=== PATIENT | female | born 1995 | race Caucasian/White ===

== ENCOUNTER 2017-12-14 16:21 | Outpatient (CLI) | payer MEDICAID ==
[2017-12-14 18:51] LABS: RUPTURE FETAL MEMBRANES NEGATIVE (NEGATIVE)
== END 2017-12-14 19:15 | disposition home or self-care (01) ==
LOC: OBT 16:21 → L-D 16:22 → OBT 19:15
DX: O26.892 Other specified pregnancy related conditions, second trimester (principal); Z3A.20 20 weeks gestation of pregnancy; R10.9 Unspecified abdominal pain
CPT/HCPCS: 76815; 76817; 84112

== ENCOUNTER 2018-01-31 14:06 | Outpatient (CLI) | payer MEDICAID ==
[2018-01-31 14:54] LABS: ADD MAN DIFF? NO
[2018-01-31 14:56] LABS: BASOPHILS % 0.2 % (0.0-2.0); EOSINOPHILS % 0.3 % (0.0-7.0); HEMATOCRIT 33.1 % (37.0-47.0); HEMOGLOBIN 11.8 g/dl (12.0-16.0); LYMPHOCYTES # 1.7 10^3/ul (0.8-2.9); LYMPHOCYTES % 18.7 % (15.0-51.0); MEAN CORPUSCULAR HEMOGLOBIN 30.2 pg (29.0-33.0); MEAN CORPUSCULAR HGB CONC 35.6 g/dl (32.0-37.0); MEAN CORPUSCULAR VOLUME 84.7 fl (82.0-101.0); MEAN PLATELET VOLUME 9.6 fl (7.4-10.4); MONOCYTE # 0.6 10^3/ul (0.3-0.9); MONOCYTES % 6.9 % (0.0-11.0); NEUTROPHIL # 6.5 10^3/ul (1.6-7.5); NEUTROPHILS % 72.7 % (39.0-77.0); PLATELET COUNT 199 10^3/UL (140-415); RED BLOOD COUNT 3.91 10^6/ul (4.20-5.40); RED CELL DISTRIBUTION WIDTH 13.2 % (11.5-14.5)
[2018-01-31 14:56] LABS: WHITE BLOOD COUNT 8.9 10^3/ul (4.8-10.8)
[2018-01-31 15:28] LABS: ADD UMIC YES; UR ASCORBIC ACID NEGATIVE (NEGATIVE); UR BILIRUBIN (Dip) NEGATIVE (NEGATIVE); UR BLOOD (Dip) NEGATIVE (NEGATIVE); UR CLARITY SLIGHTLY CLOUDY (CLEAR); UR COLOR YELLOW (YELLOW); UR GLUCOSE (Dip) 1+ mg/dL (NEGATIVE); UR KETONES (Dip) NEGATIVE (NEGATIVE); UR LEUKOCYTE ESTERASE (Dip) 1+ Leu/ul (NEGATIVE); UR NITRITE (Dip) NEGATIVE (NEGATIVE); UR RBC 2 /HPF (0-5); UR SQUAMOUS EPITHELIAL CELL MODERATE /HPF (FEW); UR TOTAL PROTEIN (Dip) 1+ mg/dl (NEGATIVE); UR UROBILINOGEN (Dip) NEGATIVE (NEGATIVE); UR WBC 2 /HPF (0-5)
[2018-01-31 15:36] LABS: INR 0.93; PARTIAL THROMBOPLASTIN TIME 25.3 Sec (25.0-35.0); PROTIME 12.5 Sec (11.9-14.9)
== END 2018-01-31 16:25 | disposition home or self-care (01) ==
LOC: OBT 14:06 → L-D 14:07 → OBT 16:25
DX: O40.2XX0 Polyhydramnios, second trimester, not applicable or unspecified (principal); Z3A.27 27 weeks gestation of pregnancy
CPT/HCPCS: 76817; 76818; 81001; 85025; 85610; 85730

== ENCOUNTER 2018-03-17 15:31 | Inpatient (IN) | payer MEDICAID ==
[2018-03-17] MEDS ORDERED: GLUCOSE GEL 15 GRAM TUBE BUCCAL (17:00)
[2018-03-17] MEDS ORDERED: DEXTROSE 50% 50 ML SYRINGE IV ×2 (17:00)
[2018-03-17] MEDS ORDERED: GLUCOSE GEL 15 GRAM TUBE PO ×2 (17:00)
[2018-03-17] MEDS ORDERED: GLUCAGON 1 MG INJ IM (17:00)
[2018-03-17 17:01] LABS: ADD UMIC YES; UR ASCORBIC ACID NEGATIVE (NEGATIVE); UR BACTERIA FEW /HPF (NONE SEEN); UR BILIRUBIN (Dip) NEGATIVE (NEGATIVE); UR BLOOD (Dip) 2+ mg/dL (NEGATIVE); UR CLARITY CLEAR (CLEAR); UR COLOR YELLOW (YELLOW); UR GLUCOSE (Dip) NEGATIVE (NEGATIVE); UR KETONES (Dip) 2+ mg/dL (NEGATIVE); UR LEUKOCYTE ESTERASE (Dip) NEGATIVE Leu/ul (NEGATIVE); UR NITRITE (Dip) NEGATIVE (NEGATIVE); UR RBC 2 /HPF (0-5); UR SPECIFIC GRAVITY (Dip) 1.011 (1.003-1.030); UR SQUAMOUS EPITHELIAL CELL FEW /HPF (FEW); UR TOTAL PROTEIN (Dip) NEGATIVE (NEGATIVE); UR UROBILINOGEN (Dip) NEGATIVE (NEGATIVE); UR WBC 2 /HPF (0-5)
[2018-03-17] MEDS: LACTATED RINGER'S 1,000 ML IV (17:04)
[2018-03-17] MEDS: MAGNESIUM SULFATE 4 GM/100 ML 100 ML IV (17:05)
[2018-03-17] MEDS: BETAMET NA PHOS/AC(6 MG/ML) 5ML INJ IM (17:07)
[2018-03-17] MEDS: MAGNESIUM SULFATE 20 GM/500 ML 500 ML IV (17:29)
[2018-03-17 17:40] LABS: ADD MAN DIFF? NO
[2018-03-17 17:43] LABS: BASOPHILS % 0.2 % (0.0-2.0); EOSINOPHILS % 0.1 % (0.0-7.0); HEMATOCRIT 38.1 % (37.0-47.0); HEMOGLOBIN 13.2 g/dl (12.0-16.0); LYMPHOCYTES # 1.6 10^3/ul (0.8-2.9); LYMPHOCYTES % 13.8 % (15.0-51.0); MEAN CORPUSCULAR HEMOGLOBIN 29.5 pg (29.0-33.0); MEAN CORPUSCULAR HGB CONC 34.6 g/dl (32.0-37.0); MEAN PLATELET VOLUME 10.7 fl (7.4-10.4); MONOCYTE # 0.7 10^3/ul (0.3-0.9); MONOCYTES % 5.6 % (0.0-11.0); NEUTROPHIL # 9.2 10^3/ul (1.6-7.5); NEUTROPHILS % 79.4 % (39.0-77.0); PLATELET COUNT 207 10^3/UL (140-415); RED BLOOD COUNT 4.48 10^6/ul (4.20-5.40)
[2018-03-17 17:43] LABS: WHITE BLOOD COUNT 11.5 10^3/ul (4.8-10.8)
[2018-03-17 18:03] LABS: INR 0.89; PROTIME 12.1 Sec (11.9-14.9); PT RATIO 0.9
[2018-03-17 18:04] LABS: MAGNESIUM 1.9 mg/dl (1.7-2.5)
[2018-03-17 18:04] LABS: PARTIAL THROMBOPLASTIN TIME 27.5 Sec (25.0-35.0)
[2018-03-17 18:05] LABS: ALANINE AMINOTRANSFERASE 15 IU/L (13-69); ALBUMIN 3.8 g/dl (3.3-4.9); ALBUMIN/GLOBULIN RATIO 1.08; ALKALINE PHOSPHATASE 94 IU/L (42-121); ANION GAP 14 (8-16); ASPARTATE AMINO TRANSFERASE 18 IU/L (15-46); BILIRUBIN,INDIRECT 0.2 mg/dl (0-1.1); BILIRUBIN,TOTAL 0.2 mg/dl (0.2-1.3); BLOOD UREA NITROGEN 10 mg/dl (7-20); CALCIUM 9.1 mg/dl (8.4-10.2); CARBON DIOXIDE 20 mmol/L (21-31); CHLORIDE 108 mmol/L (97-110); CREATININE 0.53 mg/dl (0.44-1.00); GLUCOSE 81 mg/dl (70-220); POTASSIUM 4.3 mmol/L (3.5-5.1); SODIUM 138 mmol/L (135-144); TOTAL PROTEIN 7.3 g/dl (6.1-8.1)
[2018-03-17] MEDS: ACCU-CHEK XX ×3 (19:36→21:00)
[2018-03-18 01:13] LABS: MAGNESIUM 4.9 mg/dl (1.7-2.5)
[2018-03-18] MEDS: LACTATED RINGER'S 1,000 ML IV (03:40)
[2018-03-18] MEDS: MAGNESIUM SULFATE 20 GM/500 ML 500 ML IV (03:43)
[2018-03-18] MEDS: LEVOTHYROXINE 100 MCG TAB PO (08:06)
[2018-03-18] MEDS: INSULIN ASPART [NOVOLOG] 3 ML PEN SC (08:06)
[2018-03-18] MEDS: ACCU-CHEK XX ×5 (08:07→14:13)
[2018-03-18 08:37] LABS: MAGNESIUM 5.5 mg/dl (1.7-2.5)
[2018-03-18 15:03] LABS: RAPID PLASMA REAGIN NONREACTIVE (NR)
[2018-03-18] MEDS: BETAMET NA PHOS/AC(6 MG/ML) 5ML INJ IM (16:25)
== END 2018-03-18 17:33 | disposition home or self-care (01) | DRG 778 ==
LOC: OBT 15:31 → L-D 15:32 → OBT 15:57 → L-D 15:58
PROVIDERS: Obstetrics & Gynecology
DX: O60.03 Preterm labor without delivery, third trimester (principal); Z3A.33 33 weeks gestation of pregnancy; O24.419 Gestational diabetes mellitus in pregnancy, unspecified control; O99.282 Endocrine, nutritional and metabolic diseases complicating pregnancy, second trimester; E03.9 Hypothyroidism, unspecified
CPT/HCPCS: 76815; 76817; 80053; 81001; 82962; 83735; 85025; 85610; 85730; 86592

== ENCOUNTER 2018-03-19 20:07 | Inpatient (IN) | payer MEDICAID ==
[2018-03-19 22:45] LABS: ADD MAN DIFF? NO
[2018-03-19 22:48] LABS: ABNORMAL IP MESSAGE 1; BASOPHIL # 0.1 10^3/ul (0.0-0.1); BASOPHILS % 0.2 % (0.0-2.0); HEMATOCRIT 38.4 % (37.0-47.0); HEMOGLOBIN 13.2 g/dl (12.0-16.0); LYMPHOCYTES # 2.6 10^3/ul (0.8-2.9); LYMPHOCYTES % 11.9 % (15.0-51.0); MEAN CORPUSCULAR HEMOGLOBIN 29.7 pg (29.0-33.0); MEAN CORPUSCULAR HGB CONC 34.4 g/dl (32.0-37.0); MEAN CORPUSCULAR VOLUME 86.3 fl (82.0-101.0); MEAN PLATELET VOLUME 10.9 fl (7.4-10.4); MONOCYTE # 1.6 10^3/ul (0.3-0.9); MONOCYTES % 7.4 % (0.0-11.0); NEUTROPHIL # 16.9 10^3/ul (1.6-7.5); NEUTROPHILS % 78.7 % (39.0-77.0); PLATELET COUNT 243 10^3/UL (140-415); RED BLOOD COUNT 4.45 10^6/ul (4.20-5.40); RED CELL DISTRIBUTION WIDTH 13.1 % (11.5-14.5)
[2018-03-19 22:48] LABS: WHITE BLOOD COUNT 21.5 10^3/ul (4.8-10.8)
[2018-03-19 22:50] LABS: ADD UMIC YES; UR ASCORBIC ACID NEGATIVE (NEGATIVE); UR BACTERIA FEW /HPF (NONE SEEN); UR BILIRUBIN (Dip) NEGATIVE (NEGATIVE); UR BLOOD (Dip) 3+ mg/dL (NEGATIVE); UR CLARITY CLEAR (CLEAR); UR COLOR STRAW (YELLOW); UR GLUCOSE (Dip) 3+ mg/dL (NEGATIVE); UR KETONES (Dip) TRACE mg/dL (NEGATIVE); UR LEUKOCYTE ESTERASE (Dip) 2+ Leu/ul (NEGATIVE); UR NITRITE (Dip) NEGATIVE (NEGATIVE); UR RBC 4 /HPF (0-5); UR SPECIFIC GRAVITY (Dip) 1.006 (1.003-1.030); UR SQUAMOUS EPITHELIAL CELL FEW /HPF (FEW); UR TOTAL PROTEIN (Dip) NEGATIVE (NEGATIVE); UR UROBILINOGEN (Dip) NEGATIVE (NEGATIVE); UR WBC 3 /HPF (0-5)
[2018-03-19 22:52] LABS: POSITIVE DIFF @See below
[2018-03-19] MEDS: LACTATED RINGER'S 1,000 ML IV ×2 (22:55→22:57)
[2018-03-19] MEDS: AMPICILLIN 2 GM/NS (PMX) 100 ML IVPB (22:55)
[2018-03-19] MEDS ORDERED: MINERAL OIL LIGHT 10 ML VIAL TOP (23:00)
[2018-03-19] MEDS ORDERED: IBUPROFEN 600 MG TAB PO (23:00)
[2018-03-19] MEDS ORDERED: LIDOCAINE 1% (MPF) 30 ML INJ INJ (23:00)
[2018-03-19] MEDS ORDERED: METHYLERGONOVINE 0.2 MG INJ IM (23:00)
[2018-03-19] MEDS ORDERED: BUTORPHANOL 2 MG INJ IV (23:00)
[2018-03-19] MEDS ORDERED: MISOPROSTOL 200 MCG TAB PR (23:00)
[2018-03-19] MEDS ORDERED: OXYTOCIN 30 UNITS/LR 500 ML IV ×2 (23:00)
[2018-03-19] MEDS: LEVOTHYROXINE 100 MCG TAB PO (23:00)
[2018-03-19] MEDS ORDERED: CARBOPROST 250 MCG INJ IM (23:00)
[2018-03-19 23:02] LABS: ALANINE AMINOTRANSFERASE 13 IU/L (13-69); ALBUMIN/GLOBULIN RATIO 1.08; ALKALINE PHOSPHATASE 106 IU/L (42-121); ANION GAP 17 (8-16); ASPARTATE AMINO TRANSFERASE 17 IU/L (15-46); BILIRUBIN,INDIRECT 0.1 mg/dl (0-1.1); BILIRUBIN,TOTAL 0.1 mg/dl (0.2-1.3); BLOOD UREA NITROGEN 11 mg/dl (7-20); CALCIUM 9.8 mg/dl (8.4-10.2); CARBON DIOXIDE 19 mmol/L (21-31); CHLORIDE 107 mmol/L (97-110); CREATININE 0.61 mg/dl (0.44-1.00); GLUCOSE 143 mg/dl (70-220); SODIUM 139 mmol/L (135-144); TOTAL PROTEIN 7.7 g/dl (6.1-8.1); URIC ACID 2.9 mg/dl (3.1-7.9)
[2018-03-19 23:07] LABS: INR 0.86; PROTIME 11.8 Sec (11.9-14.9); PT RATIO 0.9
[2018-03-19] MEDS ORDERED: FENTAnyl 2MCG/ML-ROPIV 0.2% 100 ML (23:17)
[2018-03-19 23:18] LABS: BARBITURATES Negative (NEGATIVE); BENZODIAZEPINES Negative (NEGATIVE); COCAINE Negative (NEGATIVE); OPIATES Negative (NEGATIVE)
[2018-03-19 23:18] LABS: HEPATITIS B SURFACE ANTIGEN NEGATIVE (NEGATIVE)
[2018-03-19 23:20] LABS: AMPHETAMINE/METHAMPHETAMINE Negative (NEGATIVE)
[2018-03-19] MEDS ORDERED: NALOXONE (0.4 MG/ML) INJ IV (23:30)
[2018-03-19] MEDS ORDERED: FENTAnyl 2MCG/ML-ROPIV 0.2% 100 ML BAG EPI (23:30)
[2018-03-19 23:38] LABS: CANNABINOIDS Negative (NEGATIVE)
[2018-03-20] MEDS: AMPICILLIN 1 GM/NS (PMX) 50 ML IVPB (01:39)
[2018-03-20] MEDS: OXYTOCIN 30 UNITS/LR 500 ML IV ×3 (04:11→11:50)
[2018-03-20] MEDS ORDERED: OXYTOCIN 30 UNITS/LR 500 ML IV (04:30)
[2018-03-20] MEDS ORDERED: HYDROCODONE/APAP (5/325) TAB PO (04:30)
[2018-03-20] MEDS ORDERED: MISOPROSTOL 200 MCG TAB PR (04:30)
[2018-03-20] MEDS ORDERED: CARBOPROST 250 MCG INJ IM (04:30)
[2018-03-20] MEDS ORDERED: METHYLERGONOVINE 0.2 MG INJ IM (04:30)
[2018-03-20] MEDS ORDERED: LEVOTHYROXINE 100 MCG TAB PO (06:00)
[2018-03-20] MEDS: IBUPROFEN 600 MG TAB PO ×4 (07:00→23:35)
[2018-03-20] MEDS: LANOLIN 7 GM TUBE TOP (07:01)
[2018-03-20] MEDS: BENZOCAINE 20% 56 ML SPRAY TOP (07:01)
[2018-03-20] MEDS: LACTATED RINGER'S 1,000 ML IV* ×2 (07:29→12:20)
[2018-03-20] MEDS: LEVOTHYROXINE 100 MCG TAB PO (08:45)
[2018-03-20 14:56] LABS: RAPID PLASMA REAGIN NONREACTIVE (NR)
[2018-03-21] MEDS: IBUPROFEN 600 MG TAB PO ×3 (05:20→17:20)
[2018-03-21] MEDS: LEVOTHYROXINE 100 MCG TAB PO (05:20)
[2018-03-21 11:11] LABS: ADD MAN DIFF? NO
[2018-03-21 11:18] LABS: BASOPHIL # 0.1 10^3/ul (0.0-0.1); BASOPHILS % 0.5 % (0.0-2.0); EOSINOPHILS # 0.1 10^3/ul (0.0-0.5); EOSINOPHILS % 0.5 % (0.0-7.0); HEMATOCRIT 33.6 % (37.0-47.0); HEMOGLOBIN 11.4 g/dl (12.0-16.0); LYMPHOCYTES # 3.1 10^3/ul (0.8-2.9); MEAN CORPUSCULAR HEMOGLOBIN 29.4 pg (29.0-33.0); MEAN CORPUSCULAR HGB CONC 33.9 g/dl (32.0-37.0); MEAN CORPUSCULAR VOLUME 86.6 fl (82.0-101.0); MEAN PLATELET VOLUME 10.7 fl (7.4-10.4); MONOCYTE # 0.9 10^3/ul (0.3-0.9); MONOCYTES % 6.7 % (0.0-11.0); NEUTROPHIL # 8.5 10^3/ul (1.6-7.5); NEUTROPHILS % 65.6 % (39.0-77.0); PLATELET COUNT 205 10^3/UL (140-415); RED BLOOD COUNT 3.88 10^6/ul (4.20-5.40); RED CELL DISTRIBUTION WIDTH 13.3 % (11.5-14.5)
[2018-03-21 11:18] LABS: WHITE BLOOD COUNT 12.9 10^3/ul (4.8-10.8)
[2018-03-21] MEDS ORDERED: ACCU-CHEK XX (20:05)
[2018-03-22] MEDS: IBUPROFEN 600 MG TAB PO ×2 (00:02→05:14)
[2018-03-22] MEDS: LEVOTHYROXINE 100 MCG TAB PO (05:14)
[2018-03-22] MEDS: DIPHTH/TET/ACEL PERTUSS (ADULT) 0.5 ML VIAL IM* (09:20)
== END 2018-03-22 12:28 | disposition home or self-care (01) | DRG 775 ==
LOC: OBT 20:07 → PP1 03-20 05:39 → L-D 20:10 → OBT 20:41 → L-D 20:41
PROC: 10E0XZZ Delivery of Products of Conception, External Approach (ICD-10-PCS; principal; 2018-03-20)
PROC: 0KQM0ZZ Repair Perineum Muscle, Open Approach (ICD-10-PCS; 2018-03-20)
DX: O60.14X0 Preterm labor third trimester with preterm delivery third trimester, not applicable or unspecified (principal); O70.1 Second degree perineal laceration during delivery; O99.284 Endocrine, nutritional and metabolic diseases complicating childbirth; E03.9 Hypothyroidism, unspecified; O76 Abnormality in fetal heart rate and rhythm complicating labor and delivery; Z37.0 Single live birth; Z3A.34 34 weeks gestation of pregnancy
CPT/HCPCS: 62319; 80053; 80307; 81001; 82962; 84560; 85025; 85384; 85610; 85730; 86592; 86850; 86900; 86901; 87340; 88307; 99464